=== PATIENT | female | born 1980 | race American Indian/Alaskan Native ===

== ENCOUNTER 2016-09-01 09:10 | Inpatient (IN) | payer OTHER ==
--- NOTE | 2016-09-01 09:36 | C.PDOC ---
History Of Present Illness 36-year-old male, is transferred from [facility] for depression. Patient denies any new complaints at this time. Time Seen by Provider: 09/01/16 09:18 History Per: Patient History/Exam Limitations: no limitations Past Medical History Reviewed: Historical Data, Nursing Documentation, Vital Signs - Medical History PMH: CHF (Pt unsure), Depression, Schizophrenia Family History: States: Unknown Family Hx - Social History Hx Alcohol Use: Yes Hx Substance Use: No - Immunization History Hx Tetanus Toxoid Vaccination: No Hx Influenza Vaccination: No Hx Pneumococcal Vaccination: No Review Of Systems Except As Marked, All Systems Reviewed And Found Negative. Constitutional: Negative for: Fever Cardiovascular: Negative for: Chest Pain Respiratory: Negative for: Shortness of Breath Gastrointestinal: Negative for: Vomiting Psych: Positive for: Depression Physical Exam - Physical Exam Appears: Non-toxic, No Acute Distress Skin: Warm, Dry, No Rash Head: Atraumatic, Normacephalic Eye(s): bilateral: Normal Inspection, PERRL Nose: Normal Oral Mucosa: Moist Lips: Normal Appearing Neck: Normal ROM Respiratory: No Accessory Muscle Use Extremity: Normal ROM Neurological/Psych: Oriented x3, Normal Speech Disposition Counseled Patient/Family Regarding: Diagnosis - Disposition Disposition: HOSPITALIZED Disposition Time: 09:35 Condition: STABLE - POA Present On Arrival: None - Clinical Impression Clinical Impression: Depression - Scribe Statement The provider has reviewed the documentation as recorded by the Russell Whatley All medical record entries made by the Scribe were at my direction and personally dictated by me. I have reviewed the chart and agree that the record accurately reflects my personal performance of the history, physical exam, medical decision making, and the department course for this patient. I have also personally directed, reviewed, and agree with the discharge instructions and disposition. Decision To Admit - Pt Status Changed To: Hospital Disposition Of: Inpatient - Admit Certification Admit to Inpatient:: After my assessment, the patient will require hospitalization for at least two midnights. This is because of the severity of symptoms shown, intensity of services needed, and/or the medical risk in this patient being treated as an outpatient. - InPatient: Physician Admission Certification: I certify that this patient requires 2 or more midnights of care for the following reason:: see note - . Bed Request Type: Psychiatry Admitting Physician: Lenka Menendez Patient Diagnosis: Depression
--- NOTE | 2016-09-01 09:38 | C.PDOC ---
History Of Present Illness 36-year-old male, is transferred from [facility] for depression. Patient denies any new complaints at this time. Time Seen by Provider: 09/01/16 09:18 Chief Complaint (Nursing): Psychiatric Evaluation History Per: Patient History/Exam Limitations: no limitations Onset/Duration Of Symptoms: Days Current Symptoms Are (Timing): Still Present Past Medical History Reviewed: Historical Data, Nursing Documentation, Vital Signs - Medical History PMH: CHF (Pt unsure), Depression, Schizophrenia Family History: States: Unknown Family Hx - Social History Hx Alcohol Use: Yes Hx Substance Use: No - Immunization History Hx Tetanus Toxoid Vaccination: No Hx Influenza Vaccination: No Hx Pneumococcal Vaccination: No Review Of Systems Except As Marked, All Systems Reviewed And Found Negative. Constitutional: Negative for: Fever, Chills Cardiovascular: Negative for: Chest Pain Respiratory: Negative for: Shortness of Breath Musculoskeletal: Negative for: Neck Pain, Back Pain Neurological: Negative for: Weakness, Numbness, Headache Psych: Positive for: Depression Physical Exam - Physical Exam Appears: Non-toxic, No Acute Distress Skin: Warm, Dry, No Rash Head: Atraumatic, Normacephalic Eye(s): bilateral: Normal Inspection, PERRL Nose: Normal Oral Mucosa: Moist Lips: Normal Appearing Neck: Normal ROM Chest: Symmetrical Respiratory: No Accessory Muscle Use Extremity: Normal ROM Neurological/Psych: Oriented x3, Normal Speech Disposition - Disposition Disposition: HOSPITALIZED Condition: STABLE - Clinical Impression Clinical Impression: Depression - Scribe Statement The provider has reviewed the documentation as recorded by the Russell Whatley All medical record entries made by the Finesseibchela were at my direction and personally dictated by me. I have reviewed the chart and agree that the record accurately reflects my personal performance of the history, physical exam, medical decision making, and the department course for this patient. I have also personally directed, reviewed, and agree with the discharge instructions and disposition.
--- NOTE | 2016-09-01 13:13 | PCM.PSYCH ---
Initial Psychiatric Evaluation - Initial Psychiatric Evaluation Type of Admission: Voluntary Legal Status: Capacity Chief Complaint (in patient's own words): "very depressed" History of Present Illness and Precipitating Events: The patient is seen, chart reviewed and case discussed. This is a 36-year-old -[place] female, single, has 2 children aged 6 and 12 for now with their father. 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 She lives with her cousins in [place]. She is transferred from [facility]. She reports that she misses her kids a lot, is upset about her job situation ( can't work and claims harassment bc of her mental illness) and having been denied for disability. She is also unhappy that she lost her apartment, and her kids had to move to their father's back in February 2016. She claims that made her very depressed and she also started to hear voices and getting paranoid. She claims she was diagnosed with paranoid schizophrenia but she mostly describes depressive symptoms, and at times psychotic symptoms. She did have psychotic symptoms without depression, however she mostly remembers being depressed and suicidal. Vague manic sxs in the past This time, she states she was very paranoid about her cousins and she thought that they will hurt her. She hears some laughs but no comments. She is somewhat compliant with her medications. She denies drug use. Past psych history: 5 psych admissions and 3 of them were involuntary. She attempted suicide once in 2014. Used Lexapro, Ativan and Risperdal but also Invega shot. Family psych history: mother and uncle also had schizophrenia Medical history: Obese. Denies other problems. Current Medications: Active Medications Generic Name Dose Route Start Last Admin Trade Name Freq PRN Reason Stop Dose Admin Aripiprazole 5 mg 09/01/16 18:00 Abilify PO QPM MAYRA Escitalopram Oxalate 10 mg 09/01/16 13:00 Lexapro PO DAILY MAYRA Gabapentin 300 mg 09/01/16 18:00 Neurontin PO BID MAYRA Hydroxyzine HCl 50 mg 09/01/16 12:55 Atarax PO Q6H PRN Anxiety Ibuprofen 600 mg 09/01/16 12:55 Motrin Tab PO Q6H PRN Pain, moderate (4-7) Trazodone HCl 100 mg 09/01/16 12:55 Desyrel PO HS PRN Insomnia Past Psychiatric History - Past Psychiatric History Previous Treatment History: Inpatient Pertinent Medical Hx (Current Medical&Sleep Prob, Allergies): Allergies Allergy/AdvReac Type Severity Reaction Status Date / Time No Known Allergies Allergy Unverified 09/01/16 09:34 No Known Home Med 09/01/16 Review of Systems - Neurological Neurological: UNREMARKABLE - Psychiatric Psychiatric: Anhedonia, Anxiety, Auditory Hallucinations, Depression, Difficulty Concentrating, Hallucinations, Hopelessness, Irritability, Memory Loss, Mood Swings, Panic Attacks, Paranoia. absent: Homicidal Ideation, Suicidal Ideation Mental Status Examination - Personal Presentation Personal Presentation: Looks older than stated age - Affect Affect: Blunted - Motor Activity Motor Activity: Calm - Reliability in Providing Information Reliability in Providing Information: Fair - Speech Speech: Organized - Mood Mood: Depressed, Anxious - Formal Thought Process Formal Thought Process: Hallucinations, Delusions, Paranoia - Cognitive Functions Orientation: Person, Place, Situation, Time Sensorium: Alert Attention/Concentration: Attentive Abstract Thinking: [place] Estimate of Intelligence: Average Judgement: Intact, as evidence by: Insight regarding need for hospitalization Memory: Recent intact, as evidence by: Ability to recall events of the day, Remote intact, as evidenced by: Abilit to recall sig. life events - Risk Risk: Diminished functioning - Strength & Assets Inventory Strength & Assets Inventory: Cooperative - Limitations Limitations: Living alone, Other (unemployed, lost kids) DSM 5 DX - DSM 5 DSM 5 Diagnosis: Schizoaffective d/o - depressed r/o CPS - acute exacerbation - Recommended/Plan of Treatment Treatment Recommendations and Plan of Treatment: Psychosis: -Abilify -CBT and supportive tx Depression: -Lexapro -CBT and supportive therapy -Attend groups and activities Refer back to [place] but to a day treatment program 33 min Projected ELOS: 7 days Prognosis: Good Discharge Plan and Discharge Criteria: No psychosis or Si Refer to DTP - Smoking Cessation Smoking Cessation Initiated: Yes
--- NOTE | 2016-09-02 16:58 | PCM.PYCHPN ---
Psychiatric Progress Note - Psychiatric Progress Note Patient seen today, length of contact: 17 min Patient Chief Complaint: "Still sad, worried, not well" Problems Identified/Issues Discussed: The pt is seen, chart reviewed, case discussed with staff. The pt is compliant with medications and reports no side-effects. Symptoms are slowly improving but needs more time to stabilize. After care discussed, she is more worried about her housing and disability applications (denied 5 times) Support and psychoeducation given. CBT started Medication Change: Yes (lennyy to 10 ) Medical Record Reviewed: Yes Mental Status Examination - Cognitive Function Orientation: Person, Place, Situation, Time Memory: Intact Attention: Poor Concentration: Poor Association: WNL Fund of Knowledge: WNL - Mood Mood: Depressed, Anxious - Affect Affect: Blunted - Speech Speech: Appropriate, Soft - Formal Thought Process Formal Thought Process: Hallucinations, Paranoia - Suicidal Ideation Suicidal Ideation: No - Homicidal Ideation Homicidal Ideation: No Goal/Treatment Plan - Goal/Treatment Plan Need for Continued Stay: Discharge may exacerbated symptoms, Severe functional impairment Progress Toward Problem(s) and Goals/Treatment Plan: Psychosis: -Abilify -CBT and supportive tx Depression: -Lexapro -CBT and supportive therapy -Attend groups and activities Refer back to [facility] but to a day treatment program Estimated Date of D/C: 09/06/16
--- NOTE | 2016-09-03 13:26 | PCM.PYCHPN ---
Psychiatric Progress Note - Psychiatric Progress Note Patient seen today, length of contact: 17 min Patient Chief Complaint: "I feel stressed" Problems Identified/Issues Discussed: The pt is seen, chart reviewed, case discussed with staff. Pt states her mood is neutral today. Pt admits to drowsiness, but denies any other symptom. Pt reports hearing hallucinations 3 weeks ago, but does not hear voices currently. She states the voices are echoes of what people say. Pt reports that when she is angry, the voices encourage her to hurt others. Pt admits to feeling paranoid. Pt states that she feels a spirit-like presence watching over her. Currently, pt is experiencing thought broadcasting. Pt believes people can read her mind. Pt also reports that the Agustinati is talking to her through the TV. 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 Aftercare discussed, support and psychoeducation given. Medical Problems: Obese, denies other medical problems. Medication Change: Yes (abilify to 10 ) Medical Record Reviewed: Yes Mental Status Examination - Cognitive Function Orientation: Person, Place, Situation, Time Memory: Intact Attention: Poor Concentration: Poor Association: Loose Fund of Knowledge: WNL - Mood Mood: Depressed, Anxious - Affect Affect: Blunted - Speech Speech: Appropriate, Soft - Formal Thought Process Formal Thought Process: Hallucinations, Delusions, Paranoia, Loosening of associations - Suicidal Ideation Suicidal Ideation: No - Homicidal Ideation Homicidal Ideation: No Goal/Treatment Plan - Goal/Treatment Plan Need for Continued Stay: Discharge may exacerbated symptoms, Severe functional impairment Progress Toward Problem(s) and Goals/Treatment Plan: Schizoaffective disorder depressed type Abilify 10 mg PO QPM Lexapro 10 mg PO daily Gabapentin 300 mg PO BID MAYRA Trazodone 100 mg PO HS PRN As needed meds Attend groups and activities CBT Psychoeducation Supportive therapy, individual therapy Estimated Date of D/C: 09/06/16 - Smoking Cessation Smoking Cessation Initiated: No
--- NOTE | 2016-09-04 10:26 | PCM.PYCHPN ---
Psychiatric Progress Note - Psychiatric Progress Note Patient seen today, length of contact: 16 min Patient Chief Complaint: "I feel annoyed" Problems Identified/Issues Discussed: The pt seen, chart reviewed, case discussed. Pt current mood is low. Pt reports hearing mumbling voices last night. Pt is unclear on what the voices are saying. She states that she feels annoyed and feels like hurting someone "now." Pt continues to feel paranoid and believes people are watching her. Pt denies visual hallucinations and thoughts of suicide. Pt slept well and appetite is good today. Pt denies nausea, vomiting, abdominal pain. Pt admits to drowsiness. Her current plan is to attend an outpatient program in [place], [place]. Aftercare discussed, support and psychoeducation given. Medical Problems: Obese, denies other medical problems. Medication Change: Yes (Lexapro to 20) Medical Record Reviewed: Yes Mental Status Examination - Cognitive Function Orientation: Person, Place, Situation, Time Memory: Intact Attention: Poor Concentration: Poor Association: WNL Fund of Knowledge: WNL - Mood Mood: Depressed, Anxious - Affect Affect: Blunted - Speech Speech: Appropriate, Soft - Formal Thought Process Formal Thought Process: Hallucinations, Paranoia - Suicidal Ideation Suicidal Ideation: No - Homicidal Ideation Homicidal Ideation: No Goal/Treatment Plan - Goal/Treatment Plan Need for Continued Stay: Discharge may exacerbated symptoms, Severe functional impairment Progress Toward Problem(s) and Goals/Treatment Plan: Schizoaffective disorder depressed type Abilify 10 mg PO QPM Lexapro 20 mg PO daily Gabapentin 300 mg PO BID MAYRA Trazodone 100 mg PO HS PRN As needed meds Attend groups and activities CBT Psychoeducation Supportive therapy, individual therapy Estimated Date of D/C: 09/06/16 - Smoking Cessation Smoking Cessation Initiated: No
--- NOTE | 2016-09-05 09:54 | PCM.PYCHPN ---
Psychiatric Progress Note - Psychiatric Progress Note Patient seen today, length of contact: 16 min Patient Chief Complaint: I'm still feeling depressed Problems Identified/Issues Discussed: The pt is seen, chart reviewed, case discussed with staff. As per staff patient remained isolated and withdrawn and confined to her room. She reports improvement in the voices still hearing. She appears more organized than yesterday but remained internally preoccupied and delusional. She is taking medication and denies any side effects Aftercare discussed, support and psychoeducation given. Medical Problems: Obese, denies other medical problems. Medication Change: Yes (Increase Abilify) Medical Record Reviewed: Yes Mental Status Examination - Cognitive Function Orientation: Person, Place, Situation, Time Memory: Intact Attention: WNL Concentration: Poor Association: Loose Fund of Knowledge: WNL - Mood Mood: Depressed, Anxious - Affect Affect: Blunted - Speech Speech: Appropriate, Soft - Formal Thought Process Formal Thought Process: Hallucinations, Delusions, Paranoia, Loosening of associations - Suicidal Ideation Suicidal Ideation: No - Homicidal Ideation Homicidal Ideation: No Goal/Treatment Plan - Goal/Treatment Plan Need for Continued Stay: Discharge may exacerbated symptoms, Severe functional impairment Progress Toward Problem(s) and Goals/Treatment Plan: Schizoaffective disorder depressed type Abilify 15 mg PO QPM Lexapro 20 mg PO daily Gabapentin 300 mg PO BID MAYRA Trazodone 100 mg PO HS PRN As needed meds Attend groups and activities CBT Psychoeducation Supportive therapy, individual therapy Estimated Date of D/C: 09/06/16 - Smoking Cessation Smoking Cessation Initiated: No
--- NOTE | 2016-09-06 15:38 | PCM.PYCHPN ---
Psychiatric Progress Note - Psychiatric Progress Note Patient seen today, length of contact: 10 Patient Chief Complaint: "No thoughts of hurting myself; just a little bit down" Problems Identified/Issues Discussed: The pt is seen, chart reviewed, case discussed with staff. The pt is compliant with medications and reports no side-effects. Symptoms are slowly improving but needs more time to stabilize. Pt. slept for 8 hours. Pt. reports that her mood is fine, although she had a slight headache (PRN med's helped). Pt. denies any auditory hallucinations. Pt. denies any thoughts of self harm or suicide. Pt. does stipulate that she feels a little down. Staff report that Pt. is much less isolated than on admission, and that she has been seen socializing and smiling. After care discussed. Support given. Medication Change: No Medical Record Reviewed: Yes Mental Status Examination - Cognitive Function Orientation: Person, Place, Situation, Time Memory: Intact Attention: WNL Concentration: Poor Association: Loose Fund of Knowledge: WNL - Mood Mood: Depressed, Anxious - Affect Affect: Blunted - Speech Speech: Appropriate, Soft - Formal Thought Process Formal Thought Process: Delusions, Paranoia, Loosening of associations - Suicidal Ideation Suicidal Ideation: No - Homicidal Ideation Homicidal Ideation: No Goal/Treatment Plan - Goal/Treatment Plan Need for Continued Stay: Discharge may exacerbated symptoms, Severe functional impairment Progress Toward Problem(s) and Goals/Treatment Plan: Psychosis: -Abilify -CBT and supportive tx Depression: -Lexapro -CBT and supportive therapy -Attend groups and activities Refer back to [place] but to a day treatment program Estimated Date of D/C: 09/06/16 - Smoking Cessation Smoking Cessation Initiated: No
--- NOTE | 2016-09-07 16:48 | PCM.PYCHPN ---
Psychiatric Progress Note - Psychiatric Progress Note Patient seen today, length of contact: 16 min Patient Chief Complaint: "I feel okay" Problems Identified/Issues Discussed: The pt is seen, chart reviewed, case discussed. Pt mood is positive today. Pt denies auditory hallucinations today. Pt denies thoughts of hurting herself or others. Pt admits that she continues to feel a presence watching her every move, but states that it is on/off. Pt plan is to attend an outpatient program in [facility]. Aftercare discussed, support and psychoeducation given. She asked for a letter to clear her for work (??). She is contradicting self as she also wants to get disability Medical Problems: Obese, Pt denies other medical problems Medication Change: No (None) Medical Record Reviewed: Yes Mental Status Examination - Cognitive Function Orientation: Person, Place, Situation, Time Memory: Intact Attention: WNL Concentration: Poor Association: WNL Fund of Knowledge: WNL - Mood Mood: Depressed, Anxious - Affect Affect: Broad - Speech Speech: Appropriate - Formal Thought Process Formal Thought Process: Delusions, Paranoia - Suicidal Ideation Suicidal Ideation: No - Homicidal Ideation Homicidal Ideation: No Goal/Treatment Plan - Goal/Treatment Plan Need for Continued Stay: Discharge may exacerbated symptoms, Severe functional impairment Progress Toward Problem(s) and Goals/Treatment Plan: Psychosis: -Abilify -Psychoeducation -CBT and supportive treatment -Attend groups and activities Depression: -Lexapro -CBT and supportive therapy -Attend groups and activities Refer back to [facility], but to a day treatment program Estimated Date of D/C: 09/10/16 - Smoking Cessation Smoking Cessation Initiated: No
--- NOTE | 2016-09-08 12:53 | PCM.PYCHPN ---
Psychiatric Progress Note - Psychiatric Progress Note Patient seen today, length of contact: 16 min Patient Chief Complaint: I'm still feeling depressed Problems Identified/Issues Discussed: The pt is seen, chart reviewed, case discussed with staff. The pt is compliant with medications and reports no side-effects. Pt. reports improvement in her sleep and mood. Her symptoms are improving but needs more time to stabilize. After care discussed, support and psychoeducation given. Medical Problems: Obese, denies other medical problems. Medication Change: No (None) Medical Record Reviewed: Yes Mental Status Examination - Cognitive Function Orientation: Person, Place, Situation, Time Memory: Intact Attention: WNL Concentration: Poor Association: WNL Fund of Knowledge: WNL - Mood Mood: Depressed, Anxious - Affect Affect: Broad - Speech Speech: Appropriate - Formal Thought Process Formal Thought Process: Delusions, Paranoia - Suicidal Ideation Suicidal Ideation: No - Homicidal Ideation Homicidal Ideation: No Goal/Treatment Plan - Goal/Treatment Plan Need for Continued Stay: Discharge may exacerbated symptoms, Severe functional impairment Progress Toward Problem(s) and Goals/Treatment Plan: Schizoaffective disorder depressed type Abilify 15 mg PO QPM Lexapro 20 mg PO daily Gabapentin 300 mg PO BID MAYRA Trazodone 100 mg PO HS PRN As needed meds Attend groups and activities CBT Psychoeducation Supportive therapy, individual therapy Estimated Date of D/C: 09/10/16 - Smoking Cessation Smoking Cessation Initiated: No
[2016-09-09 07:25] VITALS: O2SAT 99
--- NOTE | 2016-09-09 22:11 | PCM.PYCHPN ---
Psychiatric Progress Note - Psychiatric Progress Note Patient seen today, length of contact: 16 min Patient Chief Complaint: I'm still feeling much better Problems Identified/Issues Discussed: The pt is seen, chart reviewed, case discussed with staff. She reports improvement in the mood and psychosis. She appears more organized and denied any paranoia. She remained calm and cooperative. She is taking medication and denies any side effects Aftercare discussed, support and psychoeducation given. Medical Problems: Obese, denies other medical problems. Medication Change: No (None) Medical Record Reviewed: Yes Mental Status Examination - Cognitive Function Orientation: Person, Place, Situation, Time Memory: Intact Attention: WNL Concentration: Poor Association: WNL Fund of Knowledge: WNL - Mood Mood: Depressed, Anxious - Affect Affect: Broad - Speech Speech: Appropriate - Formal Thought Process Formal Thought Process: Delusions, Paranoia - Suicidal Ideation Suicidal Ideation: No - Homicidal Ideation Homicidal Ideation: No Goal/Treatment Plan - Goal/Treatment Plan Need for Continued Stay: Discharge may exacerbated symptoms, Severe functional impairment Progress Toward Problem(s) and Goals/Treatment Plan: Schizoaffective disorder depressed type Abilify 15 mg PO QPM Lexapro 20 mg PO daily Gabapentin 300 mg PO BID MAYRA Trazodone 100 mg PO HS PRN As needed meds Attend groups and activities CBT Psychoeducation Supportive therapy, individual therapy Estimated Date of D/C: 09/10/16 - Smoking Cessation Smoking Cessation Initiated: No
[2016-09-10 11:02] VITALS: RESP 20
--- NOTE | 2016-09-10 14:17 | PCM.PYCHPN ---
Psychiatric Progress Note - Psychiatric Progress Note Patient seen today, length of contact: 15 min Patient Chief Complaint: I'm feeling much better Problems Identified/Issues Discussed: The pt is seen, chart reviewed, case discussed with staff. She appears more organized and started coming out of her room. She reports improvement in the mood and psychosis. She remained calm and cooperative. She is taking medication and denies any side effects Aftercare discussed, support and psychoeducation given. Medical Problems: Obese, denies other medical problems. Medication Change: No (None) Medical Record Reviewed: Yes Mental Status Examination - Cognitive Function Orientation: Person, Place, Situation, Time Memory: Intact Attention: WNL Concentration: WNL Association: WNL Fund of Knowledge: WNL - Mood Mood: Anxious - Affect Affect: Broad - Speech Speech: Appropriate - Formal Thought Process Formal Thought Process: No Impairment - Suicidal Ideation Suicidal Ideation: No - Homicidal Ideation Homicidal Ideation: No Goal/Treatment Plan - Goal/Treatment Plan Need for Continued Stay: Discharge may exacerbated symptoms, Severe functional impairment Progress Toward Problem(s) and Goals/Treatment Plan: Schizoaffective disorder depressed type Abilify 20 mg PO QPM Lexapro 20 mg PO daily Gabapentin 300 mg PO BID AMYRA Trazodone 100 mg PO HS PRN As needed meds Attend groups and activities CBT Psychoeducation Supportive therapy, individual therapy Estimated Date of D/C: 09/10/16 - Smoking Cessation Smoking Cessation Initiated: No
[2016-09-11 07:53] VITALS: BP 115/75; PULSE 78; TEMP 98.1
--- NOTE | 2016-09-11 10:49 | PCM.PYCHDC ---
Mental Status Examination - Mental Status Examination Orientation: Person, Place, Situation, Time Memory: Intact Mood: Neutral Affect: Constricted Speech: Soft Attention: WNL Concentration: WNL Association: WNL Fund of Knowledge: WNL Formal Thought Process: No Impairment Description of patient's judgement and insight: good, fair Psychotic Thoughts and Behaviors: denies any AVH Suicidal Ideation: No Current Homicidal Ideation?: No Discharge Summary - Discharge Note Reason for Hospitalization: This is a 36-year-old -[place] female, single, has 2 children aged 6 and 12 for now with their father. 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 She lives with her cousins in [place]. She is transferred from [facility]. She reports that she misses her kids a lot, is upset about her job situation ( can't work and claims harassment bc of her mental illness) and having been denied for disability. She is also unhappy that she lost her apartment, and her kids had to move to their father's back in February 2016. She claims that made her very depressed and she also started to hear voices and getting paranoid. She claims she was diagnosed with paranoid schizophrenia but she mostly describes depressive symptoms, and at times psychotic symptoms. She did have psychotic symptoms without depression, however she mostly remembers being depressed and suicidal. Vague manic sxs in the past This time, she states she was very paranoid about her cousins and she thought that they will hurt her. She hears some laughs but no comments. She is somewhat compliant with her medications. She denies drug use. Consultations:: List each consultation separately and include: 1. Reason for request. 2. Findings. 3. Follow-up Summary of Hospital Course include:: 1. Description of specific treatment plan utilized for patients during their course of treatmen. 2. Summarize the time- course for resolution of acute symptoms and/or regressed behaviors. 3. Describe issues identified and worked on during hospitalization. 4. Describe medication utilized. 5. Describe medical problems identified and treated. 6. Reassessment of suicide risk Summary of Hospital Course: During the course of her stay, patient (pt) started progressively improving and she no longer remained anxious, depressed, paranoid and suicidal. Her mood was getting better and she started attending groups and meetings and started socializing. The doses of her medications were maximized and patient denied any feelings of hopelessness, helplessness, and worthlessness, denied any problem with the sleep or appetite, denied suicidal ideation or homicidal ideation. Pt denied any auditory or visual hallucinations. Patient reported improvement in her mood and tolerated these medications very well and denied any side effects. - Final Diagnosis (DSM 5) Condition upon Discharge: STABLE DSM 5: Schizoaffective disorder depressed type Disposition: HOME/ ROUTINE Follow-up Treatment Plan: Education: Pt was educated and counseled about the risks and benefits of taking and not taking medications. Pt was educated and counseled about the risks of drinking and abusing drugs. Pt was educated and counseled to go to the ER or call 911 if pt develop suicidal ideation or homicidal ideation, worsening of symptoms or severe side effects of the meds. Prescriptions/Medication Reconciliation: ARIPiprazole [Abilify] 20 mg PO QPM #30 tab Escitalopram [Lexapro] 20 mg PO DAILY #30 tab Gabapentin [Neurontin] 300 mg PO BID #60 cap traZODone [Desyrel] 100 mg PO HS PRN #30 tab PRN Reason: Insomnia - Smoking Cessation Smoking Cessation Medication prescribed: No - Antipsychotic Medications Pt discharged on 2 or more routine antipsychotic medications: No
== END 2016-09-11 15:30 | disposition home or self-care (01) | DRG 885 ==
LOC: C.ER 09:10 → C.5E 09:36
PROVIDERS: ADMIT Psychiatry & Neurology Psychiatry; ATTEND Psychiatry & Neurology Psychiatry
PROC: GZHZZZZ Group Psychotherapy (ICD-10-PCS; principal; 2016-09-01)
PROC: GZ56ZZZ Individual Psychotherapy, Supportive (ICD-10-PCS; 2016-09-01)
DX: F25.1 Schizoaffective disorder, depressive type (principal); E66.9 Obesity, unspecified; Z81.8 Family history of other mental and behavioral disorders; Z79.899 Other long term (current) drug therapy